=== PATIENT | female | born 1950 | race Caucasian/White ===

== ENCOUNTER 2016-07-29 16:19 | Emergency (ER) | payer BC ==
[~2016-07-29] VITALS: Ht 170.2 cm; Wt 90.9 kg
[2016-07-29] MEDS ORDERED: MULT-1203 PO (16:33)
[2016-07-29] MEDS ORDERED: ATOR20TA86 PO (16:33)
[2016-07-29] MEDS ORDERED: ANAS1TAB49 PO (16:33)
[2016-07-29] MEDS ORDERED: CALC-746 PO (16:33)
[2016-07-29] MEDS ORDERED: MONT10TA21 PO (16:33)
[2016-07-29] MEDS ORDERED: LEVO50 PO (16:33)
[2016-07-29] MEDS ORDERED: PARO10TA89 PO (16:33)
[2016-07-29] MEDS ORDERED: ALPR0.255 PO (16:33)
[2016-07-29] MEDS ORDERED: PERTUSS(ACELL),DIPH,TET VAC/PF 0.5 ML VIAL IM ONE (17:00)
[2016-07-29 17:17] VITALS: BP 189/85
[2016-07-29] MEDS ORDERED: BACITRACIN 0.9 GM PACKET OINTMENT TP ONE (17:30)
== END 2016-07-29 17:48 | disposition home or self-care (01) ==
LOC: EDBD 16:20 → EMS 16:20
DX: S01.01XA Laceration without foreign body of scalp, initial encounter (principal); S00.93XA Contusion of unspecified part of head, initial encounter; E03.9 Hypothyroidism, unspecified; Z88.0 Allergy status to penicillin; W22.8XXA Striking against or struck by other objects, initial encounter; Y93.89 Activity, other specified; Y92.096 Garden or yard of other non-institutional residence as the place of occurrence of the external cause; Y99.8 Other external cause status
CPT/HCPCS: 12001; 90471; 90715; 99283